=== PATIENT | female | born 1940 | race Caucasian/White ===

== ENCOUNTER → 2021-01-09 14:09 | Outpatient (BNV) | payer MEDICARE, MEDICAID, SELFPAY | PROVIDERS: PCP Family Medicine; Visit Provider Internal Medicine Medical Oncology | DX: D61.818 Other pancytopenia (principal); Z85.71 Personal history of Hodgkin lymphoma | CPT/HCPCS: 99213; 99214 ==

== ENCOUNTER 2021-11-09 14:58 | Outpatient (REF) | payer OTHER, SELFPAY ==
--- NOTE | ~2021-11-09 | XR_ITS ---
EXAMINATION: XR CHEST CLINICAL INFORMATION: Covid 19 COMPARISON: CT chest, abdomen and pelvis 05/05/2021 and chest x-ray 12/18/2018 TECHNIQUE: 2 views of the chest were obtained. FINDINGS: Cardiac silhouette is normal in size. The lungs are adequately aerated. Subtle patchy airspace opacities noted projecting over the lateral right lung. No gross lobar consolidation is identified. No large pleural effusion or pneumothorax. Evaluation of the right lung apex is suboptimal given artifact from overlying chin. Mild degenerative changes of the spine. XR/XR chest 2V IMPRESSION: Subtle patchy airspace opacities of the lateral right lung. Findings most suggestive of infiltrate given provided history of Covid 19.
== END 2021-11-09 14:59 | disposition home or self-care (01) ==
LOC: HO.XRAY 14:58
PROVIDERS: PCP Family Medicine; Visit Provider Family Medicine
DX: U07.1 COVID-19 (principal)
CPT/HCPCS: 71046

== ENCOUNTER 2023-06-12 12:40 | Outpatient (REF) | payer OTHER, SELFPAY ==
--- NOTE | ~2023-06-12 | XR_ITS ---
EXAMINATION: XR LUMBOSACRAL SPINE CLINICAL INFORMATION: Low back pain COMPARISON: Sagittal reconstruction from abdomen pelvis CT from an outside center April 2021. TECHNIQUE: Three views of the lumbosacral spine. FINDINGS: Thoracolumbar dextroscoliosis noted. Bony demineralization seen. No acute lumbar compression fracture observed. Spondylosis and degenerative disc space narrowing noted at multiple levels. There is facet arthrosis. Atherosclerotic changes of the abdominal aorta seen. Sacrum grossly intact. XR/XR lumbar spine 2-3V IMPRESSION: 1. No acute compression fractures. 2. Multilevel spondylosis and degenerative disc space narrowing. 3. Facet arthrosis. Thoracolumbar dextroscoliosis.
== END 2023-06-12 12:41 | disposition home or self-care (01) ==
LOC: HO.HHCX 12:40
PROVIDERS: Visit Provider Family Medicine
DX: M54.50 Low back pain, unspecified (principal)
CPT/HCPCS: 72100

== ENCOUNTER 2023-06-12 13:05 | Outpatient (REF) | payer OTHER, SELFPAY ==
[2023-06-12 15:59] LABS: MANUAL DIFF FLAG NO
[2023-06-12 16:09] LABS: Basophils Percent Auto 0.3 % (0-2); Eosinophils Absolute Auto 0.1 X10*3/uL (0.0-0.4); Eosinophils Percent Auto 1.4 % (0-4); Hematocrit 35.6 % (37.0-47.0); Lymphocytes Absolute Auto 1.6 X10*3/uL (1.2-4.9); Mean Corpuscular HGB Conc 33.7 g/dl (31.0-35.0); Mean Corpuscular Hemoglobin 33.8 pg (27.0-33.0); Mean Corpuscular Volume 100.3 fL (80.0-98.0); Mean Platelet Volume 10.7 fL (9.4-12.3); Monocytes Absolute Auto 0.2 X10*3/uL (0.1-1.2); Monocytes Percent Auto 6.4 % (2-11); Neutrophils Absolute Auto 1.6 x10*3/uL (2.0-8.3); Neutrophils Percent Auto 44.9 % (45-73); Platelet Count 110 X10*3/uL (160-400); Red Blood Count 3.55 X10*6/uL (4.20-5.50); Red Cell Distribution Width 12.2 % (11.0-16.0); White Blood Count 3.5 X10*3/uL (4.8-10.8)
[2023-06-12 16:58] LABS: Alanine Aminotransferase 21 U/L (0-31); Albumin Level 3.8 g/dL (3.5-5.0); Alkaline Phosphatase 90 U/L (39-117); Anion Gap 12 (12-20); Aspartate Amino Transferase 24 U/L (5-31); Bilirubin Direct 0.4 mg/dL (0.0-0.5); Bilirubin Total 0.9 mg/dL (0.0-1.0); Blood Urea Nitrogen 10 mg/dL (9-16); Calcium 9.9 mg/dL (8.4-10.2); Carbon Dioxide 26 mmol/L (22-29); Chloride 109 mmol/L (96-108); Cholesterol 104 mg/dL (<200); Estimated Glomerular Filt Rate > 60; Glucose Random 120 mg/dL (60-115); HDL Cholesterol 48 mg/dL (>40); LDL Cholesterol Calculated 32 mg/dL (<100); Potassium 3.9 mmol/L (3.3-5.1); Sodium 143 mmol/L (135-145); Triglycerides 123 mg/dL (<150)
[2023-06-12 17:08] LABS: Estimated Average Glucose 103 mg/dL; Hemoglobin A1c % 5.2 % (<6.0)
[2023-06-12 17:15] LABS: Free T4 (Free Thyroxine) 1.02 ng/dL (0.71-1.85); Thyroid Stimulating Hormone 0.86 uIU/mL (0.32-4.0); Vitamin D 25-OH Total 29.5 ng/mL (>30)
== END 2023-06-12 13:06 | disposition home or self-care (01) ==
LOC: HO.HHCL 13:05
PROVIDERS: Visit Provider Family Medicine
DX: R73.03 Prediabetes (principal); E78.5 Hyperlipidemia, unspecified; E03.9 Hypothyroidism, unspecified; I35.0 Nonrheumatic aortic (valve) stenosis; Z86.79 Personal history of other diseases of the circulatory system
CPT/HCPCS: 36415; 80048; 80061; 80076; 82306; 83036; 84439; 84443; 85025

== ENCOUNTER 2023-09-25 10:46 | Outpatient (REF) | payer OTHER, SELFPAY ==
--- NOTE | ~2023-09-25 | XR_ITS ---
EXAMINATION: XR HIP, RIGHT CLINICAL INFORMATION: Pain status-post fall 2 weeks prior. COMPARISON: None available. TECHNIQUE: AP and frog-leg lateral views of the right hip. FINDINGS: No fracture. Alignment is anatomic. Hip joint space is mildly narrowed superomedially. Soft tissues are unremarkable. There are pelvic phleboliths, and iliofemoral atherosclerotic calcifications are seen. XR/XR hip LT min 2V IMPRESSION: There is very mild osteoarthritic change of the right hip. No fracture or dislocation is seen. EXAMINATION: XR HIP, LEFT CLINICAL INFORMATION: Pain status-post fall 2 weeks prior. COMPARISON: None available. TECHNIQUE: AP and frog-leg lateral views of the left hip. FINDINGS: No fracture. Alignment is anatomic. Hip joint space is well-maintained. Soft tissues are unremarkable. There are pelvic phleboliths, and iliofemoral atherosclerotic calcifications are seen. IMPRESSION: Unremarkable left hip.
--- NOTE | ~2023-09-25 | XR_ITS ---
EXAMINATION: XR HIP, RIGHT CLINICAL INFORMATION: Pain status-post fall 2 weeks prior. COMPARISON: None available. TECHNIQUE: AP and frog-leg lateral views of the right hip. FINDINGS: No fracture. Alignment is anatomic. Hip joint space is mildly narrowed superomedially. Soft tissues are unremarkable. There are pelvic phleboliths, and iliofemoral atherosclerotic calcifications are seen. XR/XR hip RT min 2V IMPRESSION: There is very mild osteoarthritic change of the right hip. No fracture or dislocation is seen. EXAMINATION: XR HIP, LEFT CLINICAL INFORMATION: Pain status-post fall 2 weeks prior. COMPARISON: None available. TECHNIQUE: AP and frog-leg lateral views of the left hip. FINDINGS: No fracture. Alignment is anatomic. Hip joint space is well-maintained. Soft tissues are unremarkable. There are pelvic phleboliths, and iliofemoral atherosclerotic calcifications are seen. IMPRESSION: Unremarkable left hip.
== END 2023-09-25 10:47 | disposition home or self-care (01) ==
LOC: HO.HHCX 10:46
PROVIDERS: Visit Provider Family Medicine
DX: M25.551 Pain in right hip (principal); M25.552 Pain in left hip; Z91.81 History of falling
CPT/HCPCS: 73502

== ENCOUNTER 2024-07-02 12:13 | Outpatient (REF) | payer OTHER, SELFPAY ==
[2024-07-02 13:07] LABS: MANUAL DIFF FLAG NO
[2024-07-02 13:23] LABS: Basophils Percent Auto 0.8 % (0-2); Eosinophils Percent Auto 0.8 % (0-4); Hematocrit 33.6 % (37.0-47.0); Hemoglobin 11.6 g/dl (12.0-16.0); Imm Gran Abs Auto 0.01 X10*3/uL (0.00-0.03); Imm Gran Pct Auto 0.4 % (0.0-0.4); Lymphocytes Percent Auto 39.9 % (20-40); Mean Corpuscular HGB Conc 34.5 g/dl (31.0-35.0); Mean Corpuscular Hemoglobin 34.7 pg (27.0-33.0); Mean Corpuscular Volume 100.6 fL (80.0-98.0); Monocytes Absolute Auto 0.2 X10*3/uL (0.1-1.2); Monocytes Percent Auto 9.2 % (2-11); Neutrophils Absolute Auto 1.2 x10*3/uL (2.0-8.3); Neutrophils Percent Auto 48.9 % (45-73); Red Blood Count 3.34 X10*6/uL (4.20-5.50); SCAN SMEAR FLAG 1
[2024-07-02 13:28] LABS: Platelet Count 91 X10*3/uL (160-400); White Blood Count 2.4 X10*3/uL (4.8-10.8)
[2024-07-02 13:41] LABS: Estimated Average Glucose 105 mg/dL; Hemoglobin A1c % 5.3 % (<6.0)
[2024-07-02 13:57] LABS: Alanine Aminotransferase 21 U/L (0-31); Albumin Level 3.7 g/dL (3.5-5.0); Alkaline Phosphatase 87 U/L (39-117); Anion Gap 11 (12-20); Aspartate Amino Transferase 24 U/L (5-31); Bilirubin Direct 0.3 mg/dL (0.0-0.5); Bilirubin Total 0.9 mg/dL (0.0-1.0); Blood Urea Nitrogen 8 mg/dL (9-16); Calcium 9.6 mg/dL (8.4-10.2); Carbon Dioxide 25 mmol/L (22-29); Chloride 108 mmol/L (96-108); Cholesterol 146 mg/dL (<200); Estimated Glomerular Filt Rate > 60; Glucose Random 169 mg/dL (60-115); HDL Cholesterol 48 mg/dL (>40); Iron 75 mcg/dL (30-160); LDL Cholesterol Calculated 78 mg/dL (<100); Percent Iron Saturation 31 % (15-50); Potassium 3.7 mmol/L (3.3-5.1); Sodium 140 mmol/L (135-145); Total Iron Binding Capacity 240 mcg/dL (228-428); Total Protein 7.1 g/dL (6.5-8.0); Triglycerides 104 mg/dL (<150); Unsaturated Iron Binding 165 ug/dL
[2024-07-02 14:09] LABS: Ferritin 506 ng/mL (10-250); Free T4 (Free Thyroxine) 0.91 ng/dL (0.71-1.85); Thyroid Stimulating Hormone 2.51 uIU/mL (0.32-4.0); Vitamin D 25-OH Total 26.4 ng/mL (>30)
[2024-07-02 14:21] LABS: Folate 11.5 ng/mL (> or = 4.0); Vitamin B12 513 pg/mL (200-900)
== END 2024-07-02 12:14 | disposition home or self-care (01) ==
LOC: HO.HHCL 12:13
PROVIDERS: Visit Provider Family Medicine
DX: R73.03 Prediabetes (principal); D64.9 Anemia, unspecified; E03.9 Hypothyroidism, unspecified
CPT/HCPCS: 36415; 80048; 80061; 80076; 82306; 82607; 82728; 82746; 83036; 83540; 84439; 84443; 85025

== ENCOUNTER 2025-03-23 09:35 | Outpatient (REF) | payer OTHER, SELFPAY ==
--- OUTSIDE RECORDS SUMMARY | 2025-03-23 10:26 | XMS_ITS | Encounter Summary ---
Author Organization [employer] Address [address] [facility] [address] [place] [address] Care Team Providers Care Service Girl Name Role Phone Celena Cárdenas DO Primary Care Provider + [phone] Reason for Visit * Reason Comments Med Refill Encounter Details Date Type Department Care Team (Late st Contact Info) Description 07/17/2023 Refill [facility] [address] [place], [place] [phone] Celena Cárdenas DO [address] [place], [place] [phone] Social History Tobacco Use Types Packs/Day Years Used Date Smoking Tobacco: Never Smokeless Tobacco: Never Alcohol Use Standard Drinks/Week Comments Never 0 (1 standard drink = 0.6 oz pur e alcohol) Depression Answer Date Recorded Patient Health Questionnaire-9 Score 0 02/04/2023 Housing Stability Answer Date Recorded What is your housing situation today? I have mary stern 07/17/[address] you li ve. Do you have problems with any of the following? None of the above 07/17/2023 Food Insecurity Answer Date Recorded Within the past 12 months, y ou worried that your food would run out before you got money to buy more: Never True 07/17/2023 Within the past 12 months,th e food you bought just didn't last and you didn't have enough money to get more: Never True 08/2023 Transportation Answer Date Recorded In the past 12 months, has l ack of transportation kept you from medical appts, meetings, work or from getting things needed for daily living? No 07/17/2023 Utilities Answer Date Recorded In the past 12 months, has t he electric, gas, oil or water company threatened to shut off services in your home? No 07/17/2023 Depression Answer Date Recorded Patient Health Questionnaire-2 Score 0 02/04/2023 Comments Unknown Sex and Gender Information Value Date Recorded Sex Assigned at Female 08/06/2022 10:17 AM EDT Legal Sex Female 10:17 AM EDT Gender Identity Female 08/06/2022 10:17 AM EDT Sexual Orientation Straight 08/06/2022 10 :17 AM EDT documented as of this encounter Plan of Treatment Not on file documented as of this encounter Visit Diagnoses Not on filedocumented in this encounter Additional Health Concerns Assessment Noted Time PHQ-9 Depression Total Score: 0 02/05/20 23 11:58 AM EDT documented as of this encounter Care Teams Service Girl Relationship Specialty Start Date End Date Celena Cárdenas DO [address] [place] [address] PCP - General Family Medicine 11/21/12 [facility] 10/22/24 documented as of this encounter
[2025-03-23 11:55] LABS: Basophils Percent Auto 0.9 % (0-2); Eosinophils Percent Auto 1.9 % (0-4); Hematocrit 33.5 % (37.0-47.0); Hemoglobin 11.3 g/dl (12.0-16.0); Lymphocytes Absolute Auto 1.4 X10*3/uL (1.2-4.9); Lymphocytes Percent Auto 64.2 % (20-40); MANUAL DIFF FLAG SCAN; Mean Corpuscular HGB Conc 33.7 g/dl (31.0-35.0); Mean Corpuscular Hemoglobin 34.6 pg (27.0-33.0); Mean Corpuscular Volume 102.4 fL (80.0-98.0); Monocytes Absolute Auto 0.1 X10*3/uL (0.1-1.2); Monocytes Percent Auto 6.5 % (2-11); Neutrophils Absolute Auto 0.6 x10*3/uL (2.0-8.3); Neutrophils Percent Auto 26.5 % (45-73); Red Blood Count 3.27 X10*6/uL (4.20-5.50); Red Cell Distribution Width 12.1 % (11.0-16.0); SCAN SMEAR FLAG 1
[2025-03-23 11:57] LABS: Platelet Count 71 X10*3/uL (160-400); White Blood Count 2.2 X10*3/uL (4.8-10.8)
[2025-03-23 12:09] LABS: Alanine Aminotransferase 32 U/L (0-31); Albumin Level 3.9 g/dL (3.5-5.0); Alkaline Phosphatase 93 U/L (39-117); Anion Gap 10 (12-20); Aspartate Amino Transferase 45 U/L (5-31); Blood Urea Nitrogen 9 mg/dL (9-16); Calcium 9.6 mg/dL (8.4-10.2); Carbon Dioxide 23 mmol/L (22-29); Chloride 112 mmol/L (96-108); Estimated Glomerular Filt Rate > 60; Glucose Random 104 mg/dL (60-115); Lactate Dehydrogenase 267 U/L (122-220); Potassium 4.1 mmol/L (3.3-5.1); Sodium 141 mmol/L (135-145); Total Protein 6.9 g/dL (6.5-8.0)
[2025-03-23 12:22] LABS: SLIDE REVIEW VERIFIED
[2025-03-23 12:44] LABS: Folate 10.7 ng/mL (> or = 4.0); Vitamin B12 418 pg/mL (200-900)
== END 2025-03-23 09:36 | disposition home or self-care (01) ==
LOC: HO.HHCL 09:35
PROVIDERS: Internal Medicine Medical Oncology; PCP Family Medicine; Visit Provider Family Medicine
DX: C81.90 Hodgkin lymphoma, unspecified, unspecified site (principal); J11.1 Influenza due to unidentified influenza virus with other respiratory manifestations
CPT/HCPCS: 36415; 80053; 82607; 82746; 83615; 85025

== ENCOUNTER 2025-09-22 14:29 | Outpatient (REF) | payer OTHER, SELFPAY ==
--- OUTSIDE RECORDS SUMMARY | 2025-09-22 10:45 | XMS_ITS | Encounter Summary ---
Author Organization [employer] Address [address] [facility] 7t [place] [address] Care Team Providers Care Staff Air Defense Officer Name Role Phone DimaCelena lopez Primary Care Provider + [phone] Reason for Visit * Reason Comments sick onsite Encounter Details Date Type Department Care Team ([facility] st Contact Info) Description 09/22/2025 10:45 AM EST Office Visit [facility] [address] [place], [place] [phone] Leslie Parks CNM [address] [place] [address] Vaginal atrophy (Primary Dx); Urinary symptom or sign Social History Tobacco Use Types Packs/Day Years Used Date Smoking Tobacco: Never Smokeless Tobacco: Never Alcohol Use Standard Drinks/Week Comments Never 0 (1 standard drink = 0.6 oz pur e alcohol) Depression Answer Date Recorded Patient Health Questionnaire-9 Score 7 03/23/2025 Patient Health Questionnaire-9 Score 7 03/23/2025 Last PHQ-9: Questionnaire Data Not on file 0 03/23/2025 Housing Stability Answer Date Recorded What is your housing situation today? I do not have housing (Staying with others, in a hotel, in a intermediate, living outside on the street, on a beach, in a car, or in a park 03/23/[address] you li ve. Do you have problems with any of the following? Pests such as bugs, ants, or mice;Mold;Oven or stove not working 03/23/2025 Food Insecurity Answer Date Recorded Within the past 12 months, y ou worried that your food would run out before you got money to buy more: Never True 03/23/2025 Within the past 12 months,th e food you bought just didn't last and you didn't have enough money to get more: Never True Transportation Answer Date Recorded In the past 12 months, has l ack of transportation kept you from medical appts, meetings, work or from getting things needed for daily living? No 03/23/2025 Utilities Answer Date Recorded In the past 12 months, has t he electric, gas, oil or water company threatened to shut off services in your home? No 03/23/2025 Depression Answer Date Recorded Patient Health Questionnaire-2 Score 0 03/23/2025 Internet Access Answer Date Recorded Internet Access Q1 Yes 03/23/2025 Internet Access Q2 Not on file 03/23/2025 Comments No Sex and Gender Information Value Date Recorded Sex Assigned at Female 08/06/2022 10:17 AM EDT Legal Sex Female 10:17 AM EDT Gender Identity Female 08/06/2022 10:17 AM EDT Sexual Orientation Straight 08/06/2022 10 :17 AM EDT documented as of this encounter Last Filed Vital Signs Vital Sign Reading Time Taken Comments Blood Pressure - - Pulse - - Temperature - - Respiratory Rate - - Oxygen Saturation - - Inhaled Oxygen Concentration - - Weight 48.4 kg (106 lb 12.8 oz) 025 11:00 AM EST Height - - Body Mass Index 17.77 03/23/2025 10:10 AM EDT documented in this encounter Progress Notes * Leslie Parks CNM - 09/22/2025 10:45 AM EST Subjective Patient ID: Ramandeep Santana is a 84 y.o. female who presents for vaginal bleeding Here with daughter, Mayte who is Ramandeep's caregiver. New onset vaginal bleeding with wiping forpast few days. S/p hyst with BSO, possibly for cervical dysplasia. History of vaginal bleeding in 2019. It looks like she saw DATAWAREHOUSE DEVELOPER with no findings. Not on blood thinners, not sexually active. Review of Systems Constitutional: Negative for chills and fever. Genitourinary: Positive for vaginal bleeding. Negative for dysuria, pelvic pain, vaginal discharge and vaginal pain. Objective Wt 106 lb 12.8 oz (48.4 kg) BMI 17.77 kg/m?? Physical Exam Constitutional: Appearance: Normal appearance. Abdominal: Comments: Stoma right side Genitourinary: Labia: Right: No rash, tenderness, lesion or injury. Left: No rash, tenderness, lesion or injury. Vagina: No signs of injury and foreign body. Erythema and bleeding present. No vaginal discharge, tenderness, lesions or prolapsed vaginal funk. Uterus: Absent. Adnexa: Right: No mass, tenderness or fullness. Left: No mass, tenderness or fullness. Comments: Atrophic changes, friable vaginal funk and some erythema at introitus. Scant blood notedin vagina. Cervix not seen, uterus absent. Neurological: Mental Status: She is alert. Psychiatric: Mood and Affect: Mood normal. Behavior: Behavior normal. Assessment/Plan Diagnoses and all orders for this visit: Vaginal atrophy - Bacterial Vaginosis, Yeast and Trich; Future Will send bacterial vaginosis swab as precaution and treat if positive. No contraindications to vaginal estrogen and Mayte is comfortable applying cream internally/externally. Reviewed use. Let's doskin check in 4-6 weeks. Discussed pros and cons of pap test in light of bleeding. They would not pursue treatment of abnormal pap or cervical cancer if found. Together we decided to not do pap test. Urinary symptom or sign - POCT urinalysis dipstick manually resulted (CPT 67299) - Culture, Urine, Routine Blood on urine, likely vaginal in origin. Will send culture as precaution. Other orders - Estradiol (Estrace) 0.01 % cream; Insert 0.5 g into the vagina See administration instructions. Use 0.5g vaginally nightly x 14 days, then twice a week after that documented in this encounter Plan of Treatment Upcoming Encounters Date Type Department Care Team (Late st Contact Info) Description 10/15/2025 10:15 AM EST Office Visit [address] [address] Celena Cárdensa DO [address] [place] [address] 10/26/2025 10:00 AM EST Office Visit [address] [address] Leslie Parks CNM [address] [place] [address] Scheduled Orders Name Type Priority Associated Diagnoses Orde r Schedule Culture, Urine, Routine Microbiology Routine Urinary symptom or sign Ordered: 09/22/2025 Bacterial Vaginosis, Yeast and Trich Microbiology Routine Vaginal atrophy Expected: 09/22/2025 (Approximate), Expires: 09/22/2026 documented as of this encounter Procedures Procedure Name Priority Date/Time Associated Diagnosis Comments POCT URINALYSIS DIPSTICK Routine 09/22/2025 11:02 AM EST Urinary symptom or sign documented in this encounter Results * (ABNORMAL) POCT urinalysis dipstick manually resulted (CPT 22114) (09/22/2025 11:02 AM EST) Color, UA Nuris Clarity, UA Cloudy Glucose, UA Negative Bilirubin, UA Negative Ketones, UA Negative Spec Grav, UA 1.020 Blood, UA Positive(A) Negative, None Detected Comment:large pH, UA 6.0 Protein, UA Trace Comment:30mg Urobilinogen, UA 0.2 Leukocytes, UA Trace Negative, Rare, Trace, 1+ (17), 2+ (35), 3+ (70), Trace (15) Nitrite, UA Negative Negative, None Detected Appearance, UA cloudy QC Media Lot # [id number] Lot# Expiration Date , Urine (Urine, Random) 09/22/2025 11:02 AM EST Leslie Parks CNM POINT OF CARE TEST ENTER/ EDIT ORDERABLES Final Result documented in this encounter Visit Diagnoses Diagnosis Vaginal atrophy- Primary Postmenopausal atrophic vaginitis Urinary symptom or sign documented in this encounter Additional Health Concerns Assessment Noted Time PHQ-9 Depression Total Score: 7 03/23/20 25 10:58 AM EDT documented as of this encounter Care Teams Staff Air Defense Officer Relationship Specialty Start Date End Date Celena Cárdenas DO [address] [place] [address] PCP - General Family Medicine 11/21/12 [facility] 10/22/24 documented as of this encounter
[2025-09-22 15:46] LABS: Bacterial Vaginosis PCR NEGATIVE (Negative); Candida Group PCR NOT DETECTED (Not Detect); Candida glab krusei PCR NOT DETECTED (Not Detect); Trichomonas vaginalis PCR NOT DETECTED (Not Detect)
--- OUTSIDE RECORDS SUMMARY | 2025-09-22 19:22 | XMS_ITS | Encounter Summary ---
Author Organization [employer] Address [address] [facility] 7t [place] [address] Care Team Providers Care Admin Asst Name Role Phone Celena Cárdenas DO Primary Care Provider + [phone] Reason for Visit * Reason Onset Date Comments Hospital Follow-up 10/27/2024 Encounter Details Date Type Department Care Team ([facility] st Contact Info) Description 10/27/2024 Telephone [facility] MEDICINE [address] [place], [place] [phone] Celena Cárdenas DO [address] [place], [place] [phone] Hospital Follow-up Social History Tobacco Use Types Packs/Day Years Used Date Smoking Tobacco: Never Smokeless Tobacco: Never Alcohol Use Standard Drinks/Week Comments Never 0 (1 standard drink = 0.6 oz pur e alcohol) Depression Answer Date Recorded Patient Health Questionnaire-9 Score 12 02/12/2024 Patient Health Questionnaire-9 Score 12 02/12/2024 Last PHQ-9: Questionnaire Data Not on file 0 02/12/2024 Housing Stability Answer Date Recorded What is your housing situation today? I have mary stern 01/17/[address] you li ve. Do you have problems with any of the following? None of the above 01/17/2024 Food Insecurity Answer Date Recorded Within the past 12 months, y ou worried that your food would run out before you got money to buy more: Never True 01/17/2024 Within the past 12 months,th e food you bought just didn't last and you didn't have enough money to get more: Never True 09/2024 Transportation Answer Date Recorded In the past 12 months, has l ack of transportation kept you from medical appts, meetings, work or from getting things needed for daily living? No 01/17/2024 Utilities Answer Date Recorded In the past 12 months, has t he electric, gas, oil or water company threatened to shut off services in your home? No 01/17/2024 Depression Answer Date Recorded Patient Health Questionnaire-2 Score 3 02/12/2024 Comments Unknown Sex and Gender Information Value Date Recorded Sex Assigned at Female 08/06/2022 10:17 AM EDT Legal Sex Female 10:17 AM EDT Gender Identity Female 08/06/2022 10:17 AM EDT Sexual Orientation Straight 08/06/2022 10 :17 AM EDT documented as of this encounter Miscellaneous Notes * Telephone Encounter - Romero Varma - 10/27/2024 9:18 AM EST Tc from pt requesting a HDF appt. Hospital: [facility] Date of admission: 10/15/24 Discharge date: 10/21/24 Diagnosed: Flu *Send message to [facility] Coordinators Please contact pt at [phone]. documented in this encounter Plan of Treatment Upcoming Encounters Date Type Department Care Team (Late st Contact Info) Description 10/15/2025 10:15 AM EST Office Visit [facility] MEDICINE [address] [place] [phone] Celena Cárdenas DO [address] [place] [address] 10/26/2025 10:00 AM EST Office Visit [facility]INE [address] [place] [phone] Leslie Parks CNM [address] [place] [address] documented as of this encounter Visit Diagnoses Not on filedocumented in this encounter Additional Health Concerns Assessment Noted Time PHQ-9 Depression Total Score: 12 024 3:50 PM EDT documented as of this encounter Care Teams Admin Asst Relationship Specialty Start Date End Date Celena Cárdenas DO [address] [place] [address] PCP - General Family Medicine 11/21/12 [facility] 10/22/24 documented as of this encounter
--- OUTSIDE RECORDS SUMMARY | 2025-09-22 19:22 | XMS_ITS | Encounter Summary ---
Author Organization [employer] Address [address] [facility] 7t [place] [address] Care Team Providers Care Telegraph Repeater Installer Name Role Phone Celena Cárdenas DO Primary Care Provider + [phone] Reason for Visit * Reason Comments Med Refill Encounter Details Date Type Department Care Team (Late st Contact Info) Description 07/17/2023 Refill [facility] MEDICINE [address] [place], [place] [phone] Celena Cárdenas DO [address] [place], [place] [phone] Social History Tobacco Use Types Packs/Day Years [...] as of this encounter Plan of Treatment Upcoming Encounters Date Type Department Care Team (Late st Contact Info) Description 10/15/2025 10:15 AM EST Office Visit [address] [address] Celena Cárdenas DO [address] [place] [address] 10/26/2025 10:00 AM EST Office Visit [facility] MEDICINE [address] [place] [phone] Leslie Parks CNM [address] [place] [address] documented as of this encounter Visit Diagnoses Not on filedocumented in this encounter Additional Health Concerns Assessment Noted Time PHQ-9 Depression Total Score: 0 02/05/20 23 11:58 AM EDT documented as of this encounter Care Teams Telegraph Repeater Installer Relationship Specialty Start Date End Date Celena Cárdenas DO [address] [place] [phone] PCP - General Family Medicine 11/21/12 [facility] 10/22/24 documented as of this encounter
--- OUTSIDE RECORDS SUMMARY | 2025-09-22 19:22 | XMS_ITS | Encounter Summary ---
Author Organization [employer] Address [address] [facility] 7t [place] [address] Care Team Providers Care Schedule Announcer Name Role Phone Celena Cárdenas DO Primary Care Provider + [phone] Reason for Visit * Reason Onset Date Comments Nurse Triage 05/23/2023 Encounter Details Date Type Department Care Team ([facility] st Contact Info) Description 05/23/2023 Telephone [facility] [address] [place], [place] [phone] Celena Cárdenas DO [address] [place] [address] Nurse Triage Social History Tobacco Use Types Packs/Day Years Used Date Smoking Tobacco: Never Smokeless Tobacco: Never Alcohol Use Standard Drinks/Week Comments Never 0 (1 standard drink = 0.6 oz pur e alcohol) Depression Answer Date Recorded Patient Health Questionnaire-9 Score 0 02/04/2023 Depression Answer Date Recorded Patient Health Questionnaire-2 Score 0 02/04/2023 Comments Unknown Sex and Gender Information Value Date Recorded Sex Assigned at Female 08/06/2022 10:17 AM EDT Legal Sex Female 10:17 AM EDT Gender Identity Female 08/06/2022 10:17 AM EDT Sexual Orientation Straight 08/06/2022 10 :17 AM EDT documented as of this encounter Miscellaneous Notes * Telephone Encounter - Emily Whittaker RN - 05/23/2023 11:13 AM EDT Triage call Pt daughter SOFÍA Chamorro, reports Pt is reporting more back pain. Pt does have dx of chronic back pain. Pt dementia has increased minimally at this time. Daughter is reporting that tylenol, gabapentin and vicks rub on the back is helping some. Pt has not tried heat , advised to try heat on the back when sitting down and daughter agreed. Daughter requests to see PCP. Apt 06/12/23 @ 1115am with Dr. Cárdenas. Insurance is verified as active prior to booking. Protocol Used: Back Pain (Adult) Protocol-Based Disposition: See in Office or Video Visit within 2 Weeks Video visit not offered Positive Triage Question: * Back pain is a chronic symptom (recurrent or ongoing AND lasting > 4 weeks) * All higher-acuity triage questions were negative Care Advice Discussed: * Reassurance and Education - Back Pain * Cold or Heat * Sleep * Activity * Pain Medicines * Pain Medicines - Extra Notes and Warnings * Reasons To Call Back - Fever occurs - Numbness or weakness occurs, or bowel/bladder problems - Pain begins to shoot into the leg - Pain persists over 2 weeks - Pain becomes worse - You become worse * Telephone Encounter - Jacquie Shook - 05/23/2023 10:55 AM EDT Symptom: Back Pain - Not From Injury Outcome: Schedule an appointment to be seen within 3 days Reason: Caller denied all higher acuity questions The caller accepted this outcome documented in this encounter Plan of Treatment Upcoming Encounters Date Type Department Care Team (Late st Contact Info) Description 10/15/2025 10:15 AM EST Office Visit [address] [address] Celena Cárdenas DO [address] [place] [address] 10/26/2025 10:00 AM EST Office Visit [facility] [address] [place] [phone] Leslie Parks CNM [address] [place] [address] documented as of this encounter Visit Diagnoses Not on filedocumented in this encounter Additional Health Concerns Assessment Noted Time PHQ-9 Depression Total Score: 0 02/05/20 23 11:58 AM EDT documented as of this encounter Care Teams Schedule Announcer Relationship Specialty Start Date End Date Celena Cárdenas DO [address] [place] [address] PCP - General Family Medicine 11/21/12 [facility] 10/22/24 documented as of this encounter
--- OUTSIDE RECORDS SUMMARY | 2025-09-22 19:22 | XMS_ITS | Encounter Summary ---
Author Organization [employer] Address [address] [facility] 7t [place] [address] Care Team Providers Care Java Analyst Name Role Phone Celena Cárdenas DO Primary Care Provider + [phone] Reason for Visit * Reason Onset Date Comments Appointment Request 09/18/2023 Encounter Details Date Type Department Care Team ([facility] st Contact Info) Description 09/18/[address] [facility] MEDICINE [address] [place], [place] [phone] Celena Cárdenas DO [address] [place], [place] [phone] Appointment Request Social History Tobacco Use Types Packs/Day Years Used Date Smoking Tobacco: Never Smokeless Tobacco: Never Alcohol Use Standard Drinks/Week Comments Never 0 (1 standard drink = 0.6 oz pur e alcohol) Depression Answer Date Recorded Patient Health Questionnaire-9 Score 0 02/04/2023 Housing Stability Answer Date Recorded What is your housing situation today? I have mary stern 07/23/[address] you li ve. Do you have problems with any of the following? None of the above 07/23/2023 Food Insecurity Answer Date Recorded Within the past 12 months, y ou worried that your food would run out before you got money to buy more: Never True 07/23/2023 Within the past 12 months,th e food you bought just didn't last and you didn't have enough money to get more: Never True Transportation Answer Date Recorded In the past 12 months, has l ack of transportation kept you from medical appts, meetings, work or from getting things needed for daily living? No 07/23/2023 Utilities Answer Date Recorded In the past 12 months, has t he electric, gas, oil or water company threatened to shut off services in your home? No 07/23/2023 Depression Answer Date Recorded Patient Health Questionnaire-2 Score 0 02/04/2023 Comments Unknown Sex and Gender Information Value Date Recorded Sex Assigned at Female 08/06/2022 10:17 AM EDT Legal Sex Female 10:17 AM EDT Gender Identity Female 08/06/2022 10:17 AM EDT Sexual Orientation Straight 08/06/2022 10 :17 AM EDT documented as of this encounter Miscellaneous Notes * Telephone Encounter - Melody Jah - 09/18/2023 10:52 AM EST Tc from pt daughter requesting an appointment with PCP in regards to pt possibly having alzheimer. Please contact daughter at [phone] documented in this encounter Plan of Treatment Upcoming Encounters Date Type Department Care Team (Late st Contact Info) Description 10/15/2025 10:15 AM EST Office Visit [address] [address] Celena Cárdenas DO [address] [place] [address] 10/26/2025 10:00 AM EST Office Visit [address] [address] Leslie Parks CNM [address] [place] [phone] documented as of this encounter Visit Diagnoses Not on filedocumented in this encounter Additional Health Concerns Assessment Noted Time PHQ-9 Depression Total Score: 0 02/05/20 23 11:58 AM EDT documented as of this encounter Care Teams Java Analyst Relationship Specialty Start Date End Date Celena Cárdenas DO [address] [place] [phone] PCP - General Family Medicine 11/21/12 [facility] 10/22/24 documented as of this encounter
--- OUTSIDE RECORDS SUMMARY | 2025-09-22 19:22 | XMS_ITS | Encounter Summary ---
Author Organization [employer] Address [address] [facility] 7t [place] [address] Care Team Providers Care Dairy Specialist Name Role Phone Celena Cárdenas DO Primary Care Provider + [phone] Reason for Visit * Reason Comments Med Refill Encounter Details Date Type Department Care Team (Late st Contact Info) Description 08/31/2023 Refill [facility] MEDICINE [address] [place], [place] [phone] Celena Cárdenas DO [address] [place], [place] [phone] Social History Tobacco Use Types Packs/Day Years [...] Description 10/15/2025 10:15 AM EST Office Visit [address] [address] Celena Cárdenas DO [address] [place] [address] 10/26/2025 10:00 AM EST Office Visit [facility] [address] [place] [address] Leslie Parks CNM [address] [place] [address] documented as of this encounter Visit Diagnoses Not on filedocumented in this encounter Additional Health Concerns Assessment Noted Time PHQ-9 Depression Total Score: 0 02/05/20 23 11:58 AM EDT documented as of this encounter Care Teams Dairy Specialist Relationship Specialty Start Date End Date Celena Cárdenas DO [address] [place] [phone] PCP - General Family Medicine 11/21/12 [facility] 10/22/24 documented as of this encounter
--- OUTSIDE RECORDS SUMMARY | 2025-09-22 19:22 | XMS_ITS | Encounter Summary ---
Author Organization [employer] Address [address] [facility] 7t [place] [address] Care Team Providers Care Schedule Hanger Name Role Phone Celena Cárdenas DO Primary Care Provider + [phone] Reason for Visit * Reason Onset Date Comments Appointment Request 11/05/2024 Encounter Details Date Type Department Care Team ([facility] st Contact Info) Description 11/05/2024 Telephone [facility] MED[facility]INE [address] [place], [place] [phone] Celena Cárdenas DO [address] [place], [place] [phone] Appointment Request Social History Tobacco Use Types [...] encounter Miscellaneous Notes * Telephone Encounter - Gracie Bains RN - 11/05/2024 9:19 AM EST TC placed to daughter [phone] to r/s HDF appointment. Appointment has been r/s to 11/13 at 1:30PM. Daughter agreed to appointment date and time. Sending as FYI to clinical care coordinators for tracking. * Telephone Encounter - Gordon Martinez - 11/05/2024 8:16 AM EST Tc from pt Daughter requesting to r/s apt for 11/05. Contact pt daughter at [phone] documented in this encounter Plan of Treatment Upcoming Encounters Date Type Department Care Team (Late st Contact Info) Description 10/15/2025 10:15 AM EST Office Visit [facility] [address] [place] [address] Celena Cárdenas DO [address] [place] [address] 10/26/2025 10:00 AM EST Office Visit [facility] [address] [place] [address] Leslie Parks CNM [address] [place] [address] documented as of this encounter Visit Diagnoses Not on filedocumented in this encounter Additional Health Concerns Assessment Noted Time PHQ-9 Depression Total Score: 12 024 3:50 PM EDT documented as of this encounter Care Teams Schedule Hanger Relationship Specialty Start Date End Date Celena Cárdenas DO [address] [place] [address] PCP - General Family Medicine 11/21/12 [facility] 10/22/24 documented as of this encounter
--- OUTSIDE RECORDS SUMMARY | 2025-09-22 19:22 | XMS_ITS | Encounter Summary ---
Author Organization [email or web address] Address [address] [facility] 7t [place] [address] Care Team Providers Care Natural History Collections Curator Name Role Phone Celena Cárdenas DO Primary Care Provider + [phone] Reason for Visit * Reason Onset Date Comments Lab Orders 10/30/2024 Encounter Details Date Type Department Care Team ([facility] st Contact Info) Description 10/30/2024 Telephone [facility] MEDICINE [address] [place], [place] [phone] Celena Cárdenas DO [address] [place] [address] Lab Orders Social History Tobacco Use Types Packs/Day Years [...] Telephone Encounter - Gracie Bains RN - 10/30/2024 9:51 AM EST TC returned to [facility] with [facility] at [phone] in regards to below message. Bethany reports the patient is scheduled for an echo on 11/02/24 however they do not have an order from [facility]. Per chart review, order placed on 07/02/24 and per notes order was faxed to [facility] x2 already. Bethany is requesting the order to be re-faxed to [phone] with Attention [facility]any. * Telephone Encounter - Bill Brody - 10/30/2024 9:36 AM EST Tc from Bethany in [facility] calling to request an order for an ECO and Bethany stated thatthey received the office notes for pt but not order. Bethany stated that they need this order sent by Saturday to fax number [phone]. documented in this encounter Plan of Treatment Upcoming Encounters Date Type Department Care Team (Late st Contact Info) Description 10/15/2025 10:15 AM EST Office Visit [facility] MEDICINE [address] [place] [address] Celena Cárdenas DO [address] [place] [address] 10/26/2025 10:00 AM EST Office Visit [facility]INE [address] [place], [place] [phone] Leslie Parks CNM [address] [place], [place] [phone] documented as of this encounter Visit Diagnoses Not on filedocumented in this encounter Additional Health Concerns Assessment Noted Time PHQ-9 Depression Total Score: 12 024 3:50 PM EDT documented as of this encounter Care Teams Natural History Collections Curator Relationship Specialty Start Date End Date Celena Cárdenas DO [address] [place] [phone] PCP - General Family Medicine 11/21/12 [facility] 10/22/24 documented as of this encounter
--- OUTSIDE RECORDS SUMMARY | 2025-09-22 19:22 | XMS_ITS | Clinical Summary ---
Author Organization [employer] Address [address] [facility] 7t [place] [address] Care Team Providers Care Ripshear Operator Name Role Phone Celena Cárdenas DO Primary Care Provider [phone] Allergies Active Allergy Reactions Criticality Noted Date Comments Morphine 02/04/2023 Medications baclofen (Lioresal) 10 MG tablet Take 0.5 tablets (5 mg) by mouth if needed at bedtime for muscle spasms. 30 tablet 3 4 Active Diclofenac Sodium 1 % gel Apply 2 g topically if needed in the morning, at noon, in the evening, and at bedtime (pain). 150 g 3 4 Active cholecalcifero l (Vitamin D-3) 50 MCG (1999) capsule Take 1 capsule (50 mcg) by mouth Once per day. 30 capsule 11 4 Active atorvastatin (Lipitor) 20 MG tablet TAKE 1 TABLET BY MOUTH EVERY DAY 90 tablet 3 4 Active lidocaine (Xylocaine) 5 % ointment APPLY TOPICALLY TO THE AFFECTED AREA IN THE MORNING AND AT BEDTIME NEEDED FOR MILD PAIN 60 g 3 5 Active docusate sodium (Colace) 100 MG capsule take 1 capsule by oral route 2 times every day as needed 180 capsule 1 5 Active gabapentin (Neurontin) 300 MG capsule Take 1 capsule (300 mg) by mouth 3 times daily. 90 capsule 3 5 026 Active acetaminophen (Arthritis Pain Reliever) 650 MG ER tablet Take 1 tablet (650 mg) by mouth every 8 (eight) hours if needed for mild pain. Do not crush, chew, or split. 100 tablet 2 5 Active melatonin 5 MG tablet Take 1-2 tablets (5-10 mg) by mouth if needed at bedtime (insmonia). 180 tablet 3 5 Active levothyroxine (Synthroid, Levoxyl) 75 MCG tablet Take 1 tablet (75 mcg) by mouth Once per day. 90 tablet 3 5 Active fexofenadine (Allergy Relief) 180 MG tablet Take 1 tablet (180 mg) by mouth Once per day. 90 tablet 3 5 Active ferrous sulfate (FeroSul) 325 (65 Fe) MG tablet Take 1 tablet (325 mg) by mouth 3 (three) times a week. 90 tablet 3 5 Active Calcium Carb-Cholecalc iferol 600-10 MG-MCG tablet TAKE 1 TABLET BY MOUTH TWICE DAILY 180 tablet 3 5 Active Estradiol (Estrace) 0.01 % cream Insert 0.5 g into the vagina See administration instructions. Use 0.5g vaginally nightly x 14 days, then twice a week after that 42.5 g 5 Active Active Problems Problem Noted Date Diagnosed Date Anemia 07/02/2024 Multiple pulmonary nodules 07/02/2024 Allergic rhinitis 07/02/2024 Healthcare maintenance 02/12/2024 Assessment & Plan (02/12/2024 3:14 PM EDT): -she declines flu vaccine -she declines COVID vaccine -encouraged RSV vaccine -s/p pneumovax FEBRUARY 2007 -s/p PCV20 SEP 2023 -s/p zoster vaccine FEBRUARY 2015 -s/p prevnar Jun 2018 -s/p shingrix JUL 2022 -pap smears wnl 2004, 2005 and 2006 with no h/o abnml pap smears, no need for further pap screening -mammo BIRADS 10 AUG 2023, biopsy OCT 2023 -DEXA with osteopenia NOV 2011, repeat next visit* -colonoscopy with tubular adenoma x 08 OCT 2018 at [facility] -STI/HIV screen negative FEBRUARY 2015 Chronic bilateral low back pain without sciatica 02/12/2024 Assessment & Plan (02/12/2024 3:14 PM EDT): With intermittent flaring -L-spine XR with multilevel spondylosis and DDD JUN 2023 -encouraged standing doses tylenol -cont low-dose baclofen nightly -cont baclofen TID -cont diclofenac gel and lidocaine cream prn -advised contact [facility] if sx worsen Abnormal mammogram 02/12/2024 Assessment & Plan (02/12/2024 3:14 PM EDT): 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 OCT 2023 -encouraged consider lumpectomy as recommended -will get copy of eval Ileostomy status ([facility]) 09/25/202309/25 Status post total abdominal hysterectomy and bilateral salpingo-oophorectomy 02/04/2023 Rectal prolapse 02/04/2023 History of COVID-19 02/04/2023 History of herpes zoster 02/04/2023 History of Hodgkin's lymphoma 02/04/2023 History of hypertension 02/04/2023 Aortic stenosis 11/26/2018 Assessment & Plan (02/12/2024 3:15 PM EDT): ECHO with moderate JUL 2018 -will get copy of most recent ECHO results -her dtr agrees to schedule f/u with cardiology Tubular adenoma of colon 11/05/2018 Alzheimer's disease 07/02/2018 Assessment & Plan (02/12/2024 3:15 PM EDT): -her dtr declines neurology eval at this time Hypothyroidism 12/05/2015 Assessment & Plan (02/12/2024 3:16 PM EDT): TFTs nml JUN 2023 -cont levothyroxine daily Prediabetes 12/05/2015 Overview (06/12/2023): A1c 5.4% JUL 2022, JUN 2023 Hyperlipidemia 12/05/2015 Assessment & Plan (02/12/2024 3:16 PM EDT): LDL at goal JUN 2023 -cont lipitor nightly -check lipids next visit Osteoarthritis 12/05/2015 Osteopenia 12/05/2015 Sickle cell trait 12/05/2015 Encounters Date Type Department Care Team Description 09/22/2025 10:45 AM EST Office Visit [address] [address] Leslie Parks CNM Vaginal atrophy (Primary Dx); Urinary symptom or sign 09/22/2025 Orders Only [address] [address] Leslie Parks CNM 09/22/2025 Travel 09/20/[address] [address] Celena Cárdenas DO Chart Prep 09/17/[address] [phone] Celena Cárdenas DO 09/15/2025 Patient Outreach [facility] [address] [place], [place] [phone] Celena Cárdenas DO Pre-visit Planning (SDOH was already completed) 09/01/[address] [address] Celena áCrdenas DO Rrcall Appointment; Recall Appointment 09/01/2025 Travel from Last 3 Months Immunizations Immunization Administration Dates Next Due Influenza High-dose Quadrivalent Preservative Fr ee 08/06/2022,07/04/2021 Influenza injectable quadrivalent preservative f ree 09/25/2023,12/05/2015 Influenza, High Dose Seasonal, Preservative Free 08/21/2019,07/02/2018 Influenza, IIV3, injectable 08/02/2008 Influenza, Split (incl. purified surface antigen ) 07/08/2013,06/27/2012 Pfizer Covid-19 Vaccine 12+ 12/15/2021 Pfizer Covid-19 Vaccine 12+ mitchel-sucrose (Vaca C ap) 12/15/2021 Pneumococcal Conjugate PCV 13 07/02/2018 Pneumococcal Conjugate PCV 20 09/25/2023 Pneumococcal Polysaccharide PPSV23 02/06/2007 TD (adult), 2 Lf tetanus tox oid, preservative free, adsorbed 07/21/2004 Tdap 02/07/2015 Zoster, Recombinant 08/06/2022,02/19/2022 Zoster, live 02/07/2015 Social History Tobacco Use Types Packs/Day Years Used Date Smoking Tobacco: Never Smokeless Tobacco: Never Tobacco Cessation:Counseling Given: Not Answered Alcohol Use Standard Drinks/Week Comments Never 0 [...] with others, in a hotel, in a prison, living outside on the street, on a [...] Orientation Straight 08/06/2022 10 :17 AM EDT Last Filed Vital Signs Vital Sign Reading Time Taken Comments Blood Pressure 118/60 03/23/2025 10:10 AM EDT Pulse 67 03/23/2025 10:10 AM EDT Temperature 36.6 C (97.9 F) 03/23/2025 10:10 AM EDT Respiratory Rate 19 03/23/2025 10:1 0 AM EDT Oxygen Saturation 93% 03/23/2025 10: 10 AM EDT Inhaled Oxygen Concentration - - Weight 48.4 kg (106 lb 12.8 oz) 025 11:00 AM EST Height 165.1 cm (5' 5 ) 03/23/2025 10:1 0 AM EDT Body Mass Index 17.77 03/23/2025 10:10 AM EDT Plan of Treatment Upcoming Encounters Date Type Department Care Team (Late st Contact Info) Description 10/15/2025 10:15 AM EST Office Visit [facility] MEDICINE [address] [place] [phone] Celena Cárdenas DO [address] [place] [address] 10/26/2025 10:00 AM EST Office Visit [facility] MEDICINE [address] [place] [address] Leslie Parks, CN [address] [place] [address] Health Maintenance Due Date Last Done Comments RSV Patients and Patients Aged 60 years or older (1 - 1-dose 75+ series) 2016 COVID-19 Vaccine (3 - Pfizer risk series) 01/12/2022 12/15/2021, 12/15/2021, 07/04/2021 Mammogram 11/23/2023 10/23/2023, 08/08, 03/01/2023, Additional history exists DTaP/Tdap/Td Vaccines (2 - Td or Tdap) 02/07/2025 02/07/2015, 07/21/2004 Influenza Vaccine (#1) 2025 , 08/06/2022, 07/04/2021, Additional history exists Diabetes: Hemoglobin A1C 07/02/2025 024, 06/12/2023, 06/12/2023, Additional history exists Alcohol/Substance Use Screening 03/23/2026 03/23/2025 Depression Screening 03/23/2026 03/23/2025, 03/23/20 25 SDOH Screening 03/23/2026 03/23/2025 Tobacco Screening 03/23/2026 03/23/2025 Zoster Vaccines Completed 08/06/2022, 02/04, 02/07/2015 Pneumococcal Vaccine: 50+ Years Completed 09/25/2023, 07/02/2018, 02/06/2007 HIB Vaccines Aged Out No longer eligi ble based on patient's age to complete this topic HPV Vaccines Aged Out No longer eligi ble based on patient's age to complete this topic Hepatitis A Vaccines Aged Out No long er eligible based on patient's age to complete this topic Hepatitis B Vaccines Aged Out No long er eligible based on patient's age to complete this topic IPV Vaccines Aged Out No longer eligi ble based on patient's age to complete this topic Meningococcal B Vaccine Aged Out No l onger eligible based on patient's age to complete this topic Meningococcal Vaccine Aged Out No cali isaías eligible based on patient's age to complete this topic RSV under 20 months Aged Out No longe r eligible based on patient's age to complete this topic Rotavirus Vaccines Aged Out No longer eligible based on patient's age to complete this topic Procedures Procedure Name Priority Date/Time Associated Diagnosis Comments BACTERIAL VAGINOSIS PANEL Routine 09/22/2025 11:09 AM EST POCT URINALYSIS DIPSTICK Routine 09/22/2025 11:02 AM EST Urinary symptom or sign HEMOGLOBIN A1C Routine 07/02/2024 12:15 PM EDT Prediabetes HM MAMMOGRAPHY Routine 09/03/2023 from Last 3 Months or Most Recently Relevant to Health Maintenance Results * Bacterial Vaginosis (09/22/2025 11:09 AM EST) TRICHOMONAS VAGINALIS DETECTION BY PCR NOT DETECTED Not Detect [facility] BACTERIAL VAGINOSIS DETECTION BY PCR NEGATIVE Negative [facility] Comment:The BV organism targ ets of the Xpert Xpress MVP test can becommensal in women; Xpert Xpress MVP positive results forbacterial vaginosis should be considered in conjunction withother clinical and patient information to determine thedisease status. Organisms that are not detected by the XpertXpress MVP test have also been reported to be associatedwith BV and aerobic vaginitis.The Xpert Xpress MVP test performance has not been evaluatedin patients under the age of 14. EVI GROUP DETECTION BY PCR NOT DETECTED Not Detect [facility] Evi glab krusei PCR NOT DETECTED Not Detect [facility] 09/22/2025 11:0 9 AM EST 09/22/2025 2:30 PM EST Leslie Parks [facility] LAB MICROBIOLOGY - GENERA L ORDERABLES Final Result [facility] [address] [place] [phone] * (ABNORMAL) POCT urinalysis dipstick manually resulted (CPT 81846) (09/22/2025 11:02 AM EST) Color, UA Nuris [...] Urine (Urine, Random) 09/22/2025 11:02 AM EST Lesile Parks [facility] POINT OF CARE TEST ENTER/ EDIT ORDERABLES Final Result * Hemoglobin A1c (07/02/2024 12:15 PM EDT) Pathologist [facility] Hemoglobin A1c 5.3 <6.0 % [facility] Comment:Hemoglobin A1C Refer ence Range Adults: 4.8 - 6.0 % Non diabetic: < 6.0 % Goal: < 7.0 %Additional Action Suggested: > 8.0 %Note: Hemoglobin A1c results are invalid for patients with abnormal amounts of HbF. Blood transfusions may impact the HbA1c concentration in the patient sample. Estimated Average Glucose 105 mg/dL [facility] Comment:eAG = Estimated ave rage glucose which is %A1C expressed asaverage glucose, using the formula of the E4Q-SirhtekPxioicy Glucose study (ADAG), Diabetes Care, Vol.31,#8,2007 Blood Venous blood specimen / Unknown 07/02/2024 12:15 PM EDT 07/02/2024 12:50 PM EDT us Celena Cárdenas DO LAB BLOOD ORDERABLES Final R esult [facility] [address] [place] [address] [phone] * Mammography (09/03/2023) Mammogram Bi-rads 4 Anatomical Region Laterality Modality Other Narrative 09/03/2023 Bi-rads 4 with a recommendation for a left breast US guided biopsy Historical Provider HEALTH MAINTENANCE Final Result from Last 3 Months or Most Recently Relevant to Health Maintenance Insurance [address] [place], [place] [id number] Care Teams Ripshear Operator Relationship Specialty Start Date End Date Celena Cárdenas DO [address] [place] [phone] PCP - General Family Medicine 11/21/12 [facility] 10/22/24
--- OUTSIDE RECORDS SUMMARY | 2025-09-22 19:22 | XMS_ITS | Clinical Summary ---
Author Organization [facility] ity Address [address] [place] [address] Care Team Providers Care Production Engine Repairer Name Role Phone Unavailable Primary Care Provider Unavailabl e Social History Tobacco Use Types Packs/Day Years Used Date Smoking Tobacco: Never Assessed Comments Unknown Sex and Gender Information Value Date Recorded Sex Assigned at Not on file Legal Sex Female 3:00 AM EST Gender Identity Not on file Sexual Orientation Not on file Plan of Treatment Health Maintenance Due Date Last Done Comments DTaP,Tdap,and Td Vaccines (1 - Tdap) 1960 Pneumococcal Vaccine: 50+ Ye ars (1 of 1 - PCV) 12/27/1991 Zoster Vaccines (1 of 2) 12/27/1991 RSV Immunization Adult Patie nts (1 - 1-dose 75+ series) 2016 Depression Screening 10/07/2024 COVID-19 Vaccine (1 - 2024-2 6 season) 2025 Influenza Vaccine (#1) 2025 HIB Vaccines Aged Out No longer eligi [...] on patient's age to complete this topic MMR Vaccines Aged Out No longer eligi ble based on patient's age to complete this topic Meningococcal ACWY Vaccine Aged Out N o longer eligible based on patient's age to complete this topic Meningococcal B Vaccine Aged Out No l onger eligible based on patient's age to complete this topic RSV Immunization Patients Un víctor 20 months Aged Out No longer eligible b ased on patient's age to complete this topic Varicella Vaccines Aged Out No longer eligible based on patient's age to complete this topic
--- OUTSIDE RECORDS SUMMARY | 2025-09-22 19:22 | XMS_ITS | Encounter Summary ---
Author Organization [employer] Address [address] [facility] 7t [place] [address] Care Team Providers Care Senior Storage Engineer Name Role Phone Celena Cárdenas DO Primary Care Provider + [phone] Reason for Visit * Reason Comments Med Refill Encounter Details Date Type Department Care Team (Late st Contact Info) Description 02/22/2025 Refill [facility] MEDICINE [address] [place], [place] [phone] Celena Cárdenas DO [address] [place], [place] [phone] Social History Tobacco Use Types Packs/Day Years [...] Description 10/15/2025 10:15 AM EST Office Visit [address] [address] Celena Cárdenas DO [address] [place] [phone] 10/26/2025 10:00 AM EST Office Visit [address] [address] Leslie Parks [address] [address] documented as of this encounter Visit Diagnoses Not on filedocumented in this encounter Additional Health Concerns Assessment Noted Time PHQ-9 Depression Total Score: 12 024 3:50 PM EDT documented as of this encounter Care Teams Senior Storage Engineer Relationship Specialty Start Date End Date Celena Cárdenas DO [address] [place] [phone] PCP - General Family Medicine 11/21/12 [facility] 10/22/24 documented as of this encounter
--- OUTSIDE RECORDS SUMMARY | 2025-09-22 19:23 | XMS_ITS | Encounter Summary ---
Author Organization [employer] Address [address] [facility] 7t [place] [address] Care Team Providers Care Restaurant Cook Name Role Phone Celena Cárdenas Primary Care Provider + [phone] Encounter Details Date Type Department Care Team (Latest Contact Info) Description 09/22/2025 Travel Social History Tobacco Use Types Packs/Day Years [...] with others, in a hotel, in a longterm, living outside on the street, on a [...] Description 10/15/2025 10:15 AM EST Office Visit [address] [address] Celena Cárdenas DO [address] [place] [address] 10/26/2025 10:00 AM EST Office Visit [address] [address] Leslie Parks, JUAN LUIS [address] [place] [address] documented as of this encounter Visit Diagnoses Not on filedocumented in this encounter Additional Health Concerns Assessment Noted Time PHQ-9 Depression Total Score: 7 03/23/20 10:58 AM EDT documented as of this encounter Care Teams Restaurant Cook Relationship Specialty Start Date End Date Celena Cárdenas DO [address] [place] [address] PCP - General Family Medicine 11/21/12 [facility] 10/22/24 documented as of this encounter
--- OUTSIDE RECORDS SUMMARY | 2025-09-22 19:23 | XMS_ITS | Encounter Summary ---
Author Organization [employer] Address [address] [facility] 7t [place] [address] Care Team Providers Care Human Relations Teacher Name Role Phone Celena Cárdenas DO Primary Care Provider + [phone] Reason for Visit * Reason Onset Date Comments Chart Prep 09/20/2025 Encounter Details Date Type Department Care Team ([facility] st Contact Info) Description 09/20/2025 Telephone [facility] MEDICINE [address] [place], [place] [phone] Celena Cárdenas DO [address] [place] [address] Chart Prep Social History Tobacco Use Types Packs/Day Years [...] with others, in a hotel, in a fpc, living outside on the street, on a [...] encounter Miscellaneous Notes * Telephone Encounter - Reyna Hart [place] - 09/20/2025 8:52 AM EST Chart Prep Labs: done Images: not applicable Referrals: not applicable Vaccines due: Covid, Flu, Tdap, and RSV Screenings: mammogram Overdue care gaps: A1c, Glucose, PHQ-9, and VANNESA-7 documented in this encounter Plan of Treatment Upcoming Encounters Date Type Department Care Team (Late st Contact Info) Description 10/15/2025 10:15 AM EST Office Visit [facility] MEDICINE [address] [place] [address] Celena Cádrenas DO [address] [place] [address] 10/26/2025 10:00 AM EST Office Visit [facility] MEDICINE [address] [place] [address] Leslie Parks CNM [address] [place] [address] documented as of this encounter Visit Diagnoses Not on filedocumented in this encounter Additional Health Concerns Assessment Noted Time PHQ-9 Depression Total Score: 7 03/23/20 10:58 AM EDT documented as of this encounter Care Teams Human Relations Teacher Relationship Specialty Start Date End Date Celena Cárdenas DO [address] [place] [address] PCP - General Family Medicine 11/21/12 [facility] 10/22/24 documented as of this encounter
--- OUTSIDE RECORDS SUMMARY | 2025-09-22 19:23 | XMS_ITS | Encounter Summary ---
Author Organization [employer] Address [address] [facility] 7t [place] [address] Care Team Providers Care Principal Clerk Name Role Phone Celena Cárdenas DO Primary Care Provider + [phone] Reason for Visit * Reason Comments Med Refill Encounter Details Date Type Department Care Team ([facility] st Contact Info) Description 09/17/2025 Refill [facility] MEDICINE [address] [place], [place] [phone] Celena Cárdenas DO [address] [place], [place] [phone] Social History Tobacco Use Types Packs/Day Years [...] with others, in a hotel, in a senior living, living outside on the street, on a [...] Description 10/15/2025 10:15 AM EST Office Visit [address] [address] Celena Cárdenas DO [address] [place] [address] 10/26/2025 10:00 AM EST Office Visit [address] [address] Leslie Parks CNM [address] [place] [address] documented as of this encounter Visit Diagnoses Not on filedocumented in this encounter Additional Health Concerns Assessment Noted Time PHQ-9 Depression Total Score: 7 03/23/20 25 10:58 AM EDT documented as of this encounter Care Teams Principal Clerk Relationship Specialty Start Date End Date Celena Cárdenas DO [address] [place] [phone] PCP - General Family Medicine 11/21/12 [facility] 10/22/24 documented as of this encounter
--- OUTSIDE RECORDS SUMMARY | 2025-09-22 19:23 | XMS_ITS | Patient Health Record ---
Author Organization [facility] Address [address] [place] [phone] Care Team Providers Care [employer] Principal Name Role Phone Moises Brown Jr Reason For Referral No Information Plan Of Treatment No Information
--- OUTSIDE RECORDS SUMMARY | 2025-09-22 19:23 | XMS_ITS | Encounter Summary ---
Author Organization [employer] Address [address] [facility] 7t [place] [address] Care Team Providers Care Shrimp Peeling Machine Tender Name Role Phone DimaCelena lopez Primary Care Provider + [phone] Encounter Details Date Type Department Care Team ([facility] st Contact Info) Description 09/22/2025 Orders Only [facility] MEDICINE [address] [place], [place] [phone] Leslie Parks CNM [address] [place], [place] [phone] Social History Tobacco Use Types Packs/Day Years [...] Description 10/15/2025 10:15 AM EST Office Visit [address] [address] Celena Cárdenas DO [address] [place] [address] 10/26/2025 10:00 AM EST Office Visit [address] [address] Leslie Parks CNM [address] [place] [address] documented as of this encounter Procedures Procedure Name Priority Date/Time Associated Diagnosis Comments BACTERIAL VAGINOSIS PANEL Routine 09/22/2025 11:09 AM EST documented in this encounter Results * Bacterial Vaginosis (09/22/2025 11:09 AM EST) TRICHOMONAS VAGINALIS DETECTION BY PCR NOT DETECTED Not Detect [facility] BACTERIAL VAGINOSIS DETECTION BY PCR NEGATIVE Negative [facility] Comment:The BV organism targ ets of [...] DETECTION BY PCR NOT DETECTED Not Detect [facility] Evi glab krusei PCR NOT DETECTED Not Detect [facility] 09/22/2025 11:0 9 AM EST 09/22/2025 2:30 PM EST us Leslie Parks CNM LAB MICROBIOLOGY - GENERA L ORDERABLES Final Result [facility] [address] [place] [phone] documented in this encounter Visit Diagnoses Not on filedocumented in this encounter Additional Health Concerns Assessment Noted Time PHQ-9 Depression Total Score: 7 03/23/20 25 10:58 AM EDT documented as of this encounter Care Teams Shrimp Peeling Machine Tender Relationship Specialty Start Date End Date Celena Cárdenas DO [address] [place] [address] PCP - General Family Medicine 11/21/12 [facility] 10/22/24 documented as of this encounter
--- OUTSIDE RECORDS SUMMARY | 2025-09-22 19:23 | XMS_ITS | Encounter Summary ---
Author Organization [employer] Address [address] [facility] 7t [place] [address] Care Team Providers Care Nurse Healthcare Manager Name Role Phone Celena Cárdenas DO Primary Care Provider [phone] Reason for Visit * Reason Onset Date Comments Durable Medical Equipment 11/01/2022 Encounter Details Date Type Department Care Team ([facility] st Contact Info) Description 11/01/2022 Telephone [facility] MEDICINE [address] [place], [place] [phone] Celena Cárdenas DO [address] [place] [address] Durable Medical Equipment Social History Tobacco Use Types Packs/Day Years Used Date Smoking Tobacco: Never Smokeless Tobacco: Never Alcohol Use Standard Drinks/Week Comments Never 0 (1 standard drink = 0.6 oz pur e alcohol) Comments Unknown Sex and Gender Information Value Date Recorded Sex Assigned at Female 08/06/2022 10:17 AM EDT Legal Sex Female 10:17 AM EDT Gender Identity Female 08/06/2022 10:17 AM EDT Sexual Orientation Straight 08/06/2022 10 :17 AM EDT COVID-19 Exposure Response Date Recorded In the last 10 days, have yo u been in contact with someone who was confirmed or suspected to have Coronavirus/COVID-19? No / Unsure 10/17/2022 3:42 PM EST documented as of this encounter Miscellaneous Notes * Telephone Encounter - Celena Cárdenas DO - 01/06/2023 5:02 PM EDT Was rx for transport WC initiated? * Telephone Encounter - Trevon Alvarado - 11/01/2022 9:55 AM EST Tc srinivas [place] with Health Insurance [facility] requesting a script for a Transport Chair for pt. Street Sweeper Operator was trying to get further information but requestor was not very specific. If any further question please contact pt at [phone] documented in this encounter Plan of Treatment Upcoming Encounters Date Type Department Care Team (Late st Contact Info) Description 10/15/2025 10:15 AM EST Office Visit [address] [address] Celena Cárdenas DO [address] [place] [address] 10/26/2025 10:00 AM EST Office Visit [facility] [address] [place] [address] Leslie Parks, JUAN LUIS [address] [place] [address] documented as of this encounter Visit Diagnoses Not on filedocumented in this encounter Care Teams Nurse Healthcare Manager Relationship Specialty Start Date End Date Celena Cárdenas DO [address] [place] [address] PCP - General Family Medicine [facility] documented as of this encounter
--- OUTSIDE RECORDS SUMMARY | 2025-09-22 19:23 | XMS_ITS | Encounter Summary ---
Author Organization [employer] Address [address] [facility] 7t [place] [address] Care Team Providers Care Foot Press Operator Name Role Phone Celena Cárdenas DO Primary Care Provider [phone] Reason for Visit * Reason Onset Date Comments Appointment Request 01/02/2023 Encounter Details Date Type Department Care Team (Late Contact Info) Description 01/02/2023 Telephone [facility] MEDICINE [address] [place] [address] Celena Cárdenas DO [address] [place] [address] Appointment Request Social History Tobacco Use Types [...] encounter Miscellaneous Notes * Telephone Encounter - Weston Harrington - 01/02/2023 9:02 AM EDT Tc from pt requesting to r/s appt on 01/02/23 ( f/u htn ) Please contact pt at [phone] documented in this encounter Plan of Treatment Upcoming Encounters Date Type Department Care Team (Late Contact Info) Description 10/15/2025 10:15 AM EST Office Visit [address] [address] Celena Cárdenas DO [address] [place] [address] 10/26/2025 10:00 AM EST Office Visit [address] [address] Leslie Parks CN [address] [place] [address] documented as of this encounter Visit Diagnoses Not on filedocumented in this encounter Care Teams Foot Press Operator Relationship Specialty Start Date End Date Celena Cárdenas DO [address] [place] [address] PCP - General Family Medicine 11/21/12 [facility] 10/22/24 documented as of this encounter
== END 2025-09-22 14:30 | disposition home or self-care (01) ==
LOC: HO.HHCLNP 14:29
PROVIDERS: Visit Provider Advanced Practice Midwife
DX: Z20.2 Contact with and (suspected) exposure to infections with a predominantly sexual mode of transmission (principal); N95.2 Postmenopausal atrophic vaginitis; R39.9 Unspecified symptoms and signs involving the genitourinary system
CPT/HCPCS: 81515; 87086